=== PATIENT | male | born 1945 | race Caucasian/White ===

== ENCOUNTER 2016-12-19 02:04 | Inpatient (IN) | payer OTHER ==
[~2016-12-19] VITALS: Ht 177.8 cm; Wt 76.7 kg
[2016-12-19 02:26] LABS: HEMATOCRIT 29.2 % (42.0-52.0); HEMOGLOBIN 9.6 gm/dL (14.0-18.0); MCH 29.7 pg (26.0-34.0); MCV 90.2 fL (80.0-100.0); PLATELET COUNT 344 thou/uL (150-400); RBC 3.24 mil/uL (4.50-6.00); RDW 14.2 % (10.5-14.5); WBC 17.1 thou/uL (4.0-11.0)
[2016-12-19 02:37] LABS: CALCIUM 9.1 mg/dL (8.5-10.1); CREATININE 2.3 mg/dL (0.7-1.3); POTASSIUM 4.7 mmol/L (3.5-5.1)
[2016-12-19 02:38] LABS: MANUAL DIFF YES
[2016-12-19] MEDS ORDERED: IBUPROFEN 200200 M1 PO (03:13)
[2016-12-19] MEDS ORDERED: BENADRYL25 MG PO (03:13)
[2016-12-19] MEDS ORDERED: LOPERAMIDE 2 MG2 M1 PO (03:14)
[2016-12-19] MEDS ORDERED: MAPAP325 MG PO (03:15)
[2016-12-19] MEDS ORDERED: AMLODIPINE BESY10 MG PO (03:16)
[2016-12-19] MEDS ORDERED: MILK OF MA2400 MG/10 PO (03:16)
[2016-12-19] MEDS ORDERED: MUCINEX TA600 MG/TA2 PO (03:16)
[2016-12-19] MEDS ORDERED: HALOPERIDOL 2 MG2 M1 PO (03:17)
[2016-12-19] MEDS ORDERED: ZOCOR20 MG PO (03:18)
[2016-12-19] MEDS ORDERED: FLOMAX0.4 MG PO (03:18)
[2016-12-19] MEDS ORDERED: PRILOSEC 20 MG20 MG PO (03:18)
[2016-12-19] MEDS ORDERED: ARTIFICIAL TEA1 EACH OPHTHALMIC (03:19)
[2016-12-19] MEDS ORDERED: BISACODYL SUPP10 MG RECTAL (03:19)
[2016-12-19] MEDS ORDERED: PEPTO-BISM262 MG/15 PO (03:20)
[2016-12-19] MEDS ORDERED: REFRESH TEARS15 ML OPHTHALMIC (03:20)
[2016-12-19] MEDS ORDERED: ROBAFEN100 MG/5 M PO (03:21)
[2016-12-19] MEDS ORDERED: RULOX SUSPENSI355 ML PO (03:22)
[2016-12-19 03:40] LABS: ABSOLUTE NEUTROPHILS 14.7 thou/uL (1.4-8.2); TOTAL CELL COUNT 100
[2016-12-19 04:37] VITALS: BP 108/61
[2016-12-19 04:58] VITALS: BP 153/72
[2016-12-19 05:20] LABS: % SATURATION 30 % (20-39); IRON 83 ug/dL (65-175); TIBC 278 ug/dL (250-450); UIBC 195 ug/dL
[2016-12-19 06:28] LABS: URINE BILIRUBIN NEGATIVE (Negative); URINE BLOOD TRACE (Negative); URINE COLOR YELLOW; URINE GLUCOSE-RANDOM* NEGATIVE (Negative); URINE KETONES NEGATIVE (Negative); URINE NITRITE NEGATIVE (Negative); URINE PROTEIN (DIPSTICK) TRACE (Negative); URINE UROBILINOGEN 0.2 E.U./dl (0.2-1.0)
[2016-12-19 08:00] VITALS: BP 145/84
[2016-12-19 16:00] VITALS: BP 137/63
[2016-12-19 20:55] VITALS: BP 132/70
[2016-12-20 01:16] VITALS: BP 105/52
[2016-12-20 03:32] VITALS: BP 144/77
[2016-12-20 04:58] LABS: HEMATOCRIT 22.7 % (42.0-52.0); HEMOGLOBIN 7.7 gm/dL (14.0-18.0); MCH 30.1 pg (26.0-34.0); MCHC 34.1 g/dL (28.0-37.0); MCV 88.1 fL (80.0-100.0); RBC 2.57 mil/uL (4.50-6.00); WBC 15.2 thou/uL (4.0-11.0)
[2016-12-20 05:05] LABS: CALCIUM 8.3 mg/dL (8.5-10.1)
[2016-12-20 09:12] VITALS: BP 144/70
[2016-12-20 15:19] VITALS: BP 129/60
[2016-12-20 20:12] VITALS: BP 134/67
[2016-12-20 20:30] LABS: FOLIC ACID 4.2 ng/mL (8.6-58.9)
[2016-12-21 00:30] VITALS: BP 138/71
[2016-12-21 04:13] LABS: GLYCOHEMOGLOBIN (HGB A1C) 5.3 % (4.8-5.6)
[2016-12-21 04:15] VITALS: BP 133/63
[2016-12-21 07:21] VITALS: BP 149/77
[2016-12-21 11:57] LABS: CALCIUM 8.1 mg/dL (8.5-10.1); CREATININE 1.8 mg/dL (0.7-1.3); POTASSIUM 4.1 mmol/L (3.5-5.1)
[2016-12-21 16:26] VITALS: BP 140/73
[2016-12-21 19:47] VITALS: BP 138/71
[2016-12-22 00:18] VITALS: BP 104/62
[2016-12-22 03:37] VITALS: BP 154/80
[2016-12-22 05:20] LABS: HEMATOCRIT 22.1 % (42.0-52.0); HEMOGLOBIN 7.4 gm/dL (14.0-18.0); MCH 29.8 pg (26.0-34.0); MCHC 33.6 g/dL (28.0-37.0); MCV 88.9 fL (80.0-100.0); RBC 2.48 mil/uL (4.50-6.00); RDW 14.5 % (10.5-14.5); WBC 12.4 thou/uL (4.0-11.0)
[2016-12-22 05:36] LABS: CALCIUM 8.3 mg/dL (8.5-10.1); CREATININE 1.9 mg/dL (0.7-1.3); POTASSIUM 3.9 mmol/L (3.5-5.1)
[2016-12-22 07:35] VITALS: BP 152/76
[2016-12-22 16:18] VITALS: BP 140/61
[2016-12-22 19:42] VITALS: BP 149/66
[2016-12-23 03:36] VITALS: BP 188/74
[2016-12-23 05:21] VITALS: BP 140/69
[2016-12-23 07:39] VITALS: BP 150/81
[2016-12-23] MEDS ORDERED: LEVAQUIN 750 M750 MG PO (13:23)
[2016-12-26] MEDS ORDERED: TRAMADOL 50 MG50 MG (01:33)
[2016-12-26] MEDS ORDERED: SELSUN BLUE325 M1 (01:34)
== END 2016-12-23 15:42 | DRG 871 ==
LOC: ER 02:04 → 4E 03:55 → EROBS 03:55 → 4E 04:17
PROVIDERS: Emergency Medicine; Hospitalist; Internal Medicine; Nurse Practitioner Acute Care; Physician Assistant
DX: A41.9 Sepsis, unspecified organism (principal); J18.9 Pneumonia, unspecified organism; N17.9 Acute kidney failure, unspecified; E11.649 Type 2 diabetes mellitus with hypoglycemia without coma; E78.5 Hyperlipidemia, unspecified; E11.319 Type 2 diabetes mellitus with unspecified diabetic retinopathy without macular edema; I10 Essential (primary) hypertension; R33.9 Retention of urine, unspecified; D72.829 Elevated white blood cell count, unspecified; F20.9 Schizophrenia, unspecified; D64.9 Anemia, unspecified; Z79.899 Other long term (current) drug therapy; Z79.84 Long term (current) use of oral hypoglycemic drugs
CPT/HCPCS: 10084